=== PATIENT | female | born 1995 | race Caucasian/White ===

== ENCOUNTER 2019-10-20 16:20 | Emergency (ER) | payer OTHER ==
[~2019-10-20] VITALS: Ht 162.6 cm; Wt 83.9 kg
[~2019-10-20 16:20] MED LIST: ALBU90OI INH; AZIT500 PO; CEPH500 PO; CODGUAEL PO; IBUP800 PO; IRON325 MG PO; OXYACE5T PO; Percocet 5-3251 EACH PO
[2019-10-20] MEDS ORDERED: IBUP800 PO (19:13)
[2019-10-20] MEDS ORDERED: Robaxin-750750 MG PO (19:13)
== END 2019-10-20 19:30 | disposition home or self-care (01) ==
LOC: ER 16:20
DX: R07.89 Other chest pain (principal)
CPT/HCPCS: 71101; 99283-25

== ENCOUNTER → 2020-02-26 | Outpatient (CLI) | payer OTHER ==
[~2020-02-26] MED LIST changes: +Robaxin-750750 MG PO
== END | disposition home or self-care (01) ==
LOC: LAB SHORT 10:39 → LAB EV 10:39
DX: R05 Cough (principal); Z20.828 Contact with and (suspected) exposure to other viral communicable diseases
CPT/HCPCS: U0003

== ENCOUNTER → 2020-12-13 | Outpatient (CLI) | payer OTHER ==
[2020-12-16 12:08] LABS: CHLAMYDIA BY NAA Positive (Negative); GONOCOCCUS BY NAA Positive (Negative); TRICH VAG BY NAA Negative (Negative)
== END | disposition home or self-care (01) ==
LOC: LAB SHORT 17:22
PROVIDERS: Family Medicine
DX: Z30.09 Encounter for other general counseling and advice on contraception (principal)
CPT/HCPCS: 87491; 87591; 87661

== ENCOUNTER → 2021-03-07 | Outpatient (CLI) | payer OTHER ==
[2021-03-10 13:09] LABS: CHLAMYDIA BY NAA Negative (Negative); GONOCOCCUS BY NAA Negative (Negative); TRICH VAG BY NAA Negative (Negative)
[2021-03-13 07:11] LABS: HSV-1 DNA Negative (Negative); HSV-2 DNA Negative (Negative)
== END ==
LOC: LAB 18:20 → LAB SHORT 18:20
PROVIDERS: Physician Assistant
DX: N94.89 Other specified conditions associated with female genital organs and menstrual cycle (principal)
CPT/HCPCS: 87491; 87591; 87661

== ENCOUNTER 2022-02-03 10:05 | Emergency (ER) | payer OTHER ==
[~2022-02-03] VITALS: Ht 162.6 cm; Wt 93.0 kg
== END 2022-02-03 10:40 | disposition home or self-care (01) ==
LOC: ER 10:05
DX: R51.9 Headache, unspecified (principal); Z79.899 Other long term (current) drug therapy
CPT/HCPCS: 99283